=== PATIENT | male | born 1955 | race Caucasian/White ===

== ENCOUNTER → 2021-07-24 | Outpatient (CLI) | payer OTHER ==
[~2021-07-24] MED LIST: CARDIZEM 60MG T60 MG PO; CETIRIZINE HCL10 MG PO; FLOMAX 0.4 MG0.4 MG PO; KLONOPIN TAB 00.5 MG PO; LOSARTAN POTASS50 MG PO; LYRICA150 MG PO
== END ==
LOC: CATH 09:55 → EDSTATUS 10:00
DX: R55 Syncope and collapse (principal)

== ENCOUNTER → 2021-10-29 | Outpatient (CLI) | payer OTHER | LOC: MRI 12:20 | DX: R51.9 Headache, unspecified (principal) | CPT/HCPCS: 36415; 70553; 82565; 84520; A9577 ==

== ENCOUNTER → 2022-01-25 | Outpatient (CLI) | payer OTHER | LOC: KOH-I 15:37 | DX: R10.84 Generalized abdominal pain (principal); N26.1 Atrophy of kidney (terminal); K57.30 Diverticulosis of large intestine without perforation or abscess without bleeding | CPT/HCPCS: 74176 ==